=== PATIENT | male | born 1945 | race Caucasian/White ===

== ENCOUNTER → 2017-02-28 | Day surgery (SDC) | payer MEDICARE ==
[~2017-02-28] VITALS: Ht 177.8 cm; Wt 89.9 kg
[~2017-02-28] MED LIST: *morphine SULFATE 8 MG/ML PERIprocedure ONLY ONE; ACETAMINOPHEN 1000 MG/100 ML VIAL IV SCH; ALFU10TA2 PO; ALPR0.5T99 PO; ASPI-110 PO; ASPI325T PO; CEPH500C3 PO; CHLORHEXIDINE GLUCONATE 2 % 1 PACK (2 CLOTHS) TOPICAL PRN; CLOP75 PO; DO NOT ADM ANY ANTICOAGULANT DRUGS PRN; ENAL5TAB98 PO; FISH500C PO; HYDR-3288 PO; INSULIN HUMAN REGULAR 1,000 UNITS/10 ML VIAL SQ PRN; KETOROLAC TROMETHAMINE 60 MG/2 ML (IM) VIAL IM ONE; LACTATED RINGER'S 1000 ML IV PRN; MAGN1TAB14 PO; MELA3TAB PO; METO25 PO; METO25TA3 PO; METOPROLOL TARTRATE 25 MG TAB PO PRN; MIDAZOLAM HCL 2 MG/2 ML VIAL ONE; NEOSTIGMINE 3 MG/3 ML SYR IV ONE; ONDANSETRON HCL 4 MG/2 ML VIAL IV PUSH ONE; POVIDONE IODINE 5% (ANTISEPSIS KIT) 4 APPLICATIONS EACH NARE PRN; PROPOFOL 200 MG/20 ML AMP IV ONE; RED600TA PO; SODIUM CHLORID 0.9% 500 ML IV PRN; TURM1CAP6 PO; VANCOMYCIN HCL 1000 MG ON-CALL/NS 250 ML IV SCH; ZOCO40TA PO; ceFAZolin 1,000 MG/NS 100 ML IV SCH; ePHEDrine/NS 50 MG/5 ML SYR IV ONE; fentaNYL CITRATE 250 MCG/5 ML AMP ONE
[2017-02-28 09:31] VITALS: BP 124/76; PULSE 66; RESP 16; TEMP 97.6; O2SAT 98
[2017-02-28 09:51] LABS: BASOPHIL % 0.4 % (0.0-2.0); EOSINOPHIL # 0.1 TH/MM3 (0-0.4); HEMO FLAGS DIFF FINAL; LYMPHOCYTE # 1.2 TH/MM3 (1.0-4.8); MEAN CELL VOLUME 96.5 FL (80.0-100.0); MEAN CORPUSCULAR HEMOGLOBIN 33.1 PG (27.0-34.0); MEAN CORPUSCULAR HGB CONC 34.3 % (32.0-36.0); MONO % 7.6 % (0.0-8.0); PLATELET COUNT 322 TH/MM3 (150-450); RED BLOOD COUNT 4.46 MIL/MM3 (4.50-5.90); RED CELL DISTRIBUTION WIDTH 13.4 % (11.6-17.2); WHITE BLOOD COUNT 6.9 TH/MM3 (4.0-11.0)
[2017-02-28 10:20] LABS: BICARBONATE 26.4 MEQ/L (21.0-32.0); POTASSIUM 4.1 MEQ/L (3.5-5.1)
--- NOTE | 2017-02-28 13:55 | HHI.PR ---
cc: Harrison Rojas MD Immediate Post Op Note Procedure Date: Feb 28, 2017 Pre Op Diagnosis: Recurrent RIGHT inguinal hernia,symptomatic Post Op Diagnosis: Recurrent RIGHT inguinal and femoral hernias Surgeon: Harrison Rojas Gas Appliance Adjuster(s): Duane Agudelo Procedure: Laparoscopic recurrent right inguinal and femoral hernia repair with mesh Additional Information: Multiple defects: Direct component, femoral component, indirect component Complications: None Specimen(s) removed: None Estimated blood loss: <20 ml Anesthesia: General Drains: None IVF (700 ml) Patient to: PACU Patient Condition: Good Date/Time of Procedure: SEE SURGICAL CARE RECORD Harrison Rojas MD Feb 28, 2017 13:55
[2017-02-28 15:25] VITALS: BP 118/70; PULSE 81; RESP 19; TEMP 97.4; O2SAT 96
--- NOTE | 2017-02-28 16:16 | EKG ---
Date Performed: 02/28/2017 Time Performed: 09:44:32 PTAGE: 71 years EKG: Sinus rhythm NORMAL ECG PREVIOUS TRACING : 02/16/2009 07.12 Compared to prior tracing no significant change DOCTOR: Mary Kemp Interpretating Date/Time 02/28/2017 16:14:21
--- NOTE | 2017-03-04 23:31 | MP ---
cc: PABLITO ROJAS MD DATE OF SURGERY 02/28/17 PROCEDURE Laparoscopic repair of recurrent inguinal and femoral hernia. PREOPERATIVE DIAGNOSIS Recurrent right inguinal hernia. POSTOPERATIVE DIAGNOSIS Recurrent right inguinal hernia ANESTHESIA General endotracheal SURGEON Linn Rojas MD ESTIMATED BLOOD LOSS Less than 30 mL FLUIDS 700 mL Crystalloid COMPLICATIONS None. DRAINS None SPECIMEN None. PROCEDURE IN DETAIL The patient was seen in the holding area and the right inguinal region marked by the undersigned and confirmed by the patient. When this had been completed, the patient was taken back to the operating room and placed on the operating table in the supine position. After an adequate level of general endotracheal anesthesia was achieved, the abdomen and groin were shaved, prepped and draped. Time-out was taken confirming the correct patient and procedure to be performed. Skin and subcutaneous tissue was infiltrated with local anesthetic and an incision made in the umbilicus and carried through the fascia sharply, was directly visualized. A 12 mm trocar was placed and the balloon inflated. The abdomen was insufflated. The patient was placed in Trendelenburg position and, at this point, a 12-mm trocar was placed in the right lower quadrant and a 5 mm trocar in the left lower quadrant. Both entered the abdominal cavity under direct vision uneventfully. The patient's recurrent hernia was visualized and, at this point, the peritoneum was incised and peeled downward. The patient was noted to have a direct inguinal hernia, an indirect inguinal hernia recurrence and a femoral hernia. Fatty tissue was removed from all three defects to completely expose them with the margins very clearly identified. With this noted, it was felt that the patient would best be served by dividing the epigastric vessels. These were divided with a harmonic scalpel and allowed for placement of the mesh in a flat fashion across the defect to allow for better coverage and to minimize risk of recurrence. When this had been completed, a 6 x 6 inch piece of ultra Pro mesh was brought up and trimmed to approximately 4 x 6 inches. The mesh was slit longitudinally and the corners rounded. The mesh was placed into the pelvis and the inferior leaf of mesh was brought under the spermatic cord structures. Fred's ligament had been cleaned off at this point and the anterior abdominal wall had all fatty material removed so that the fascia and muscle were clearly visualized. The mesh was then fixed to Fred's ligament with 4.0 mm desire into the transversalis fascia with 4.8 mm desire. The mesh was fixed lateral so that the slit was closed with two 4.8 mm desire as well as medially with a simple 4.8 mm staple. These were placed in order to create a new internal ring and minimize risk of recurrence. When this was completed, the surgeon's finger was placed into the defect and all defects were seen to be covered by at least 3-4 cm of mesh material. Insufflation was then decreased and the peritoneum reapproximated with 4.8 mm desire. Insufflation was then discontinued and the left and right lower quadrant trocars were removed. No bleeding was noted from the trocar sites during the remainder of desufflation. The laparoscope and umbilical port were then removed. The fascia was closed in the right lower quadrant 12-mm trocar site and the umbilical trocar site with 0 Vicryl suture in a [id number] fashion. The remaining local anesthetic was injected into the umbilical trocar site and the right lower quadrant. The skin was closed at all three trocar sites with 4-0 Vicryl in an interrupted buried fashion. All sites were dressed with Steri-Strips. An athletic supporter was placed onto the patient. He was extubated and taken back to the recovery room in stable condition. He tolerated the procedure well. MD SHE Bello/ /9:04 AM /11:21 PM
== END | disposition home or self-care (01) ==
LOC: HSDC 08:48
PROVIDERS: ATTEND Surgery Trauma Surgery
DX: K40.91 Unilateral inguinal hernia, without obstruction or gangrene, recurrent (principal); K41.91 Unilateral femoral hernia, without obstruction or gangrene, recurrent; I10 Essential (primary) hypertension; Z01.810 Encounter for preprocedural cardiovascular examination; Z01.818 Encounter for other preprocedural examination
CPT/HCPCS: 00840; 49651; 49659; 80048; 85025; 93005; C1781; J0131; J0690; J1885; J2250; J2270; J2405; J2710; J3010; J3370; J7050; J7120